=== PATIENT | female | born 1945 | race Caucasian/White ===

== ENCOUNTER 2016-12-08 08:58 | Day surgery (SDC) | payer MEDICARE ==
[~2016-12-08 08:58] MED LIST: CIPRO 500MG TA500 MG PO; PRAVACHOL 20MG.20 MG PO; SYNTHROID0.088 MG PO; TEMAZEPAM30 MG PO
--- NOTE | 2016-12-08 12:57 | Operative Note-Urology ---
Procedure/Operative Record Procedure DATE OF PROCEDURE: 12/08/16 PREOPERATIVE DIAGNOSIS: History of bladder carcinoma POSTOPERATIVE DIAGNOSIS: Same PROCEDURE PERFORMED: Flexible cystoscopy SURGEON: Moses Gutierrez ANESTHESIA: Local BRIEF HISTORY: Patient is 71 years of age and had a primary bladder carcinoma one year ago. She had surveillance cystoscopy last May Which was unremarkable. She presents today for her first local surveillance cystoscopy. She has had no gross hematuria. She has no voiding complaints other than some mild stress urinary incontinence. OPERATIVE NOTE: In the supine position the genital area was prepped and draped in standard fashion. Flexible cystoscope was inserted after instillation of Xylocaine jelly. The entire bladder surface was inspected. No evidence of recurrent tumors were noted. The scope was retroflexed to the bladder neck. Ureteral orifices were situated in the normal position and appeared to reflux clear urine. Patient tolerated procedure well. She received one Levaquin tablet prior to the procedure EBL (ml): 0 IMPRESSION: No evidence of recurrence followup 6 months PLAN: Repeat flexible local cystoscopy 6 months at 1258
[2016-12-08 14:23] VITALS: BP 110/82
== END 2016-12-08 10:25 | disposition home or self-care (01) ==
LOC: SDC 08:58
PROVIDERS: Urology
PROC: 0TJB8ZZ Inspection of Bladder, Via Natural or Artificial Opening Endoscopic (ICD-10-PCS; principal; 2016-12-08 09:15)
DX: Z85.51 Personal history of malignant neoplasm of bladder (principal)

== ENCOUNTER → 2017-10-11 | Outpatient (CLI) | payer MEDICARE ==
--- NOTE | 2017-10-11 09:26 | RADIOLOGY REPORT PS360 ---
CT ABD PELVIS W/O CONTRAST CLINICAL INDICATION: Right-sided abdominal pain ABDOMINAL PAIN ORDERING PHYSICIAN: Jennifer Chavira MD PATIENT AGE: 71 years COMPARISON: 11/27/2015 TECHNIQUE: Axial images obtained with sagittal and coronal reformats. PROCEDURE: Oral Contrast: None IV Contrast: None . FINDINGS: The lung bases are clear. Status post cholecystectomy without biliary dilatation. No focal liver lesion. The spleen, adrenal glands, and pancreas are unremarkable. A nonobstructing 2 mm stone is present in the upper pole the right kidney. No hydronephrosis. No ureteral calculi. A 1.4 cm isodense is present in the upper pole the left kidney probably related to a renal cyst unchanged. Atherosclerotic change with minimal ectasia noted of the abdominal aorta measuring up to 2 cm in transverse dimension. No evidence of appendicitis, diverticulitis, intestinal obstruction, or free air. There is diverticulosis of the sigmoid colon but no evidence of diverticulitis. No focal inflammatory change. Prior hysterectomy. Unremarkable appearing urinary bladder. No acute bony anomalies. IMPRESSION: 1. No acute abdominal or pelvic findings. 2. Nonobstructing right nephrolithiasis. 3. Probable left renal cyst. 4. Diverticulosis without diverticulitis
== END ==
LOC: RAD 08:44
DX: R10.84 Generalized abdominal pain (principal)